=== PATIENT | female | born 1990 | race Caucasian/White ===

== ENCOUNTER 2020-01-03 16:05 | Inpatient (IN) | payer BC, OTHER ==
[2020-01-03] MEDS: Lactated Ringer's 1,000 ML IV SCH ×2 (16:15→18:37)
[2020-01-03 16:24] VITALS: BMI 44.4
[2020-01-03] MEDS ORDERED: Bicitra 30 ML UDCUP ONE (18:02)
[2020-01-03] MEDS ORDERED: Ondansetron PF 4 MG/2 ML Vial IVP PRN ×3 (18:07→22:19)
[2020-01-03] MEDS ORDERED: hydrALAZINE 20 MG/ML VIAL SLOW IVP PRN ×2 (18:07→22:19)
[2020-01-03] MEDS ORDERED: Promethazine HCl 25 MG/ML VIAL IM PRN ×3 (18:07→22:19)
--- NOTE | 2020-01-03 18:10 | PDOC.LDHP ---
Labor and Delivery H&P HPI: 29 y/o at 39 and 0/7 weeks, presents in labor. She declines TOLAC. Due date: 01/10/20 Grav: 2 Para: 1 Abnormal US findings: No Current medications: pre- vitamins Previous surgical history: low tranverse CS Allergies/Adverse Reactions: Allergies Allergy/AdvReac Type Severity Reaction Status Date / Time No Known Allergies Allergy Unverified 01/03/20 17:28 Social history: none - Physical Exam Vital signs reviewed and normal: yes General: NAD, resting, breathing through contractions Heart: RRR Lungs: CTAB Abdomen: gravid Extremeties: no edema FHT: category 1 - Assessment L&D Assessment: term patient in labor - Plan Plan: admit to L&D, to OR for section
[2020-01-03] MEDS ORDERED: CEFAZOLIN 2 GM in Premix Bag 1 BAG IVPB SCH (18:15)
[2020-01-03] MEDS ORDERED: Bicitra 30 ML UDCUP PO SCH (18:15)
[2020-01-03 18:22] LABS: Hemoglobin 12.3 g/dL (12.0-16.0); Mean Corpuscular HGB CONC 32.9 g/dL (32.0-36.0); Mean Corpuscular Hemoglobin 28.5 pg (27.0-31.0); Mean Corpuscular Volume 86.6 fL (78.0-98.0); Mean Platelet Volume 8.7 fL (7.4-10.4); Platelet Count 201 thou/uL (130-400); RBC Distribution Width 14.4 % (11.5-14.5); Red Blood Cell (RBC) Count 4.32 mill/uL (4.20-5.40); White Blood Cell (WBC) Count 9.6 thou/uL (4.8-10.8)
[2020-01-03 19:01] LABS: Syphilis Antibody Nonreactive (Nonreactive); Syphilis Antibody Index 0.04 S/CO (<1.00 Non-Reactive)
[2020-01-03] MEDS ORDERED: EPHEDRINE 25 MG/5 ML SYRINGE ONE (19:02)
[2020-01-03] MEDS ORDERED: Ondansetron PF 4 MG/2 ML Vial ONE (19:02)
[2020-01-03] MEDS ORDERED: Oxytocin 10 UNITS/ML VIAL ONE ×2 (19:02→19:59)
[2020-01-03] MEDS ORDERED: PHENYLEPHRINE-NS 100 MCG/ML 10 ML SYRINGE ONE (19:02)
[2020-01-03] MEDS ORDERED: Ketorolac Tromethamine 30 MG/ML VIAL ONE (19:02)
[2020-01-03] MEDS ORDERED: Lidocaine 1% PF 5 ML VIAL ONE (19:17)
[2020-01-03 19:51] LABS: HBSAg Index 0.16 S/CO (0-0.99); Hep B Surf Ag Non-Reactive S/CO (NonReactive)
[2020-01-03] MEDS ORDERED: Meperidine HCl/PF 25 MG/ML VIAL ONE (19:56)
[2020-01-03] MEDS ORDERED: Promethazine HCl 25 MG SUPP PR PRN (20:19)
[2020-01-03] MEDS ORDERED: L&D-Morphine 4 MG/ML VIAL SLOW IVP PRN (20:19)
[2020-01-03] MEDS ORDERED: Naloxone HCl 0.4 mg/ml Vial IV PRN (20:19)
[2020-01-03] MEDS ORDERED: Naloxone HCl 0.4 mg/ml Vial IVP PRN ×2 (20:19)
[2020-01-03] MEDS ORDERED: Ketorolac Tromethamine 30 MG/ML VIAL IVP PRN (20:19)
[2020-01-03] MEDS ORDERED: Meperidine HCl/PF 25 MG/ML VIAL SLOW IVP PRN (20:19)
[2020-01-03] MEDS ORDERED: Ondansetron HCl/PF 4 MG/2 ML Vial IVP PRN (20:19)
[2020-01-03] MEDS ORDERED: HYDROmorphone 2 MG/ML VIAL SLOW IVP PRN (20:19)
[2020-01-03] MEDS: Ketorolac Tromethamine 30 MG/ML VIAL IVP SCH (20:22)
[2020-01-03] MEDS ORDERED: Communication Order-Pharmacy FS SCH (20:30)
[2020-01-03] MEDS ORDERED: Misoprostol 200 MCG TAB PR PRN (22:19)
[2020-01-03] MEDS ORDERED: Lanolin Ointment 7 GM TUBE TOP PRN (22:19)
[2020-01-03] MEDS ORDERED: Bisacodyl 10 MG SUPP PR PRN (22:19)
[2020-01-03] MEDS ORDERED: Docusate Calcium (SURFAK) 240 MG CAP PO SCH (22:30)
[2020-01-03] MEDS ORDERED: Zolpidem Tartrate 5 MG TAB PO PRN (22:35)
[2020-01-04] MEDS: diphenhydrAMINE 50 MG/ML VIAL IVP PRN ×2 (00:50→05:55)
[2020-01-04] MEDS: Lactated Ringer's 1,000 ML IV SCH (00:50)
[2020-01-04] MEDS ORDERED: Enoxaparin Sodium 40 MG/0.4 ML SYRINGE SC SCH (05:30)
[2020-01-04 06:25] LABS: Mean Corpuscular HGB CONC 31.5 g/dL (32.0-36.0); Mean Corpuscular Hemoglobin 27.8 pg (27.0-31.0); Mean Corpuscular Volume 88.2 fL (78.0-98.0); Mean Platelet Volume 8.5 fL (7.4-10.4); Platelet Count 160 thou/uL (130-400); RBC Distribution Width 14.5 % (11.5-14.5); Red Blood Cell (RBC) Count 3.97 mill/uL (4.20-5.40); White Blood Cell (WBC) Count 8.6 thou/uL (4.8-10.8)
[2020-01-04] MEDS: Prenatal Vitamin 1 TAB PO SCH (08:26)
[2020-01-04] MEDS: Docusate Calcium (SURFAK) 240 MG CAP PO SCH ×2 (08:26→22:20)
[2020-01-04] MEDS ORDERED: Zolpidem Tartrate 5 MG TAB PO PRN (08:30)
[2020-01-04] MEDS ORDERED: HYDROcodone/Acetaminophen 5/325 mg Tablet PO PRN (08:30)
[2020-01-04] MEDS ORDERED: Varicella virus, LIVE 0.5 ML VIAL SC ONE (09:00)
[2020-01-04] MEDS ORDERED: Adacel (T-DAP) 0.5 ML SYRINGE IM ONE (09:00)
[2020-01-04] MEDS ORDERED: Measles/Mumps/Rubella 10 MCG/0.5 ML VIAL SC ONE (09:00)
[2020-01-04] MEDS: HYDROcodone/Acetaminophen 5/325 mg Tablet PO PRN ×3 (09:34→22:20)
[2020-01-04] MEDS: Ketorolac Tromethamine 30 MG/ML VIAL IVP SCH (18:03)
[2020-01-04] MEDS: Ibuprofen 800 MG TAB PO SCH (22:20)
[2020-01-04] MEDS: Simethicone Chewable 80 MG TAB PO PRN (22:20)
[2020-01-05] MEDS ORDERED: Simethicone Chewable 80 MG TAB ONE (05:30)
[2020-01-05] MEDS ORDERED: Ibuprofen 800 MG TAB ONE (05:30)
[2020-01-05] MEDS ORDERED: HYDROcodone/Acetaminophen 5/325 mg Tablet ONE (05:30)
[2020-01-05] MEDS ORDERED: Ibuprofen 800 MG TAB PO SCH (06:00)
[2020-01-05] MEDS ORDERED: Docusate Calcium (SURFAK) 240 MG CAP ONE (09:00)
[2020-01-05] MEDS ORDERED: Prenatal Vitamin 1 TAB ONE (09:00)
[2020-01-05] MEDS: Ibuprofen 800 MG TAB PO SCH ×2 (10:01→14:23)
[2020-01-05] MEDS: Prenatal Vitamin 1 TAB PO SCH (10:01)
[2020-01-05] MEDS: Docusate Calcium (SURFAK) 240 MG CAP PO SCH (10:01)
[2020-01-05] MEDS: HYDROcodone/Acetaminophen 5/325 mg Tablet PO PRN ×2 (10:16→14:23)
[2020-01-05 11:48] VITALS: BP 112/65; TEMP 98.1
--- NOTE | 2020-01-05 13:58 | PDOC.PP ---
Post Progress Note Post Day #: 2 PO intake tolerated: yes Flatus: yes Ambulation: yes Vital Signs (12 hours) Temp Pulse Resp BP Pulse Ox 01/05/20 11:47 98.1 F 85 18 112/65 01/05/20 08:00 97.6 F 80 18 120/58 L 98 Weight Weight 267 lb - Physical Examination General: NAD Cardiovascular: no m/r/g, RRR Respiratory: clear to auscultation bilaterally Abdominal: + bowel sounds, lochia Extremities: negative homans (B) Skin: CS incision dry & intact, no rash Neurological: no gross focal deficits Psychiatric: A&Ox3, normal affect Result Diagrams: 01/04/20 06:13 Additional Labs: Post Labs Hep Bs Antigen Non-Reactive S/CO (NonReactive) 01/03/20 17:17 Blood Type O POSITIVE 01/03/20 18:30
--- NOTE | 2020-01-05 13:59 | PDOC.PP ---
Post Progress Note Post Day #: 1 PO intake tolerated: yes Flatus: yes Ambulation: yes Vital Signs (12 hours) Temp Pulse Resp BP Pulse Ox 01/05/20 11:47 98.1 F 85 18 112/65 01/05/20 08:00 97.6 F 80 18 120/58 L 98 Weight Weight 267 lb - Physical Examination General: NAD Cardiovascular: no m/r/g, RRR Respiratory: clear to auscultation bilaterally, non-labored breathing Abdominal: + bowel sounds, lochia, no distention Extremities: negative homans (B) Skin: CS incision dry & intact, no rash Neurological: no gross focal deficits Psychiatric: A&Ox3, normal affect Result Diagrams: 01/04/20 06:13 Additional Labs: Post Labs Hep Bs Antigen Non-Reactive S/CO (NonReactive) 01/03/20 17:17 Blood Type O POSITIVE 01/03/20 18:30
[2020-01-05] MEDS: Simethicone Chewable 80 MG TAB PO PRN (14:23)
== END 2020-01-05 15:55 | disposition home or self-care (01) | DRG 788 ==
LOC: L&D/OP 16:05 → L&D 17:03 → 3SW 22:38
PROVIDERS: ADMIT Obstetrics & Gynecology; ATTEND Obstetrics & Gynecology
PROC: 10D00Z1 Extraction of Products of Conception, Low, Open Approach (ICD-10-PCS; principal; 2020-01-03)
DX: O34.219 Maternal care for unspecified type scar from previous cesarean delivery (principal); Z3A.39 39 weeks gestation of pregnancy; Z37.0 Single live birth; O77.0 Labor and delivery complicated by meconium in amniotic fluid
CPT/HCPCS: 36415; 51702; 85027; 86780; 86850; 86900; 86901; 87340; 87635; 99285; J0690; J1200; J1650; J1885; J2175; J2270; J2405; J2590; U0003

== ENCOUNTER 2020-01-11 10:46 | Inpatient (IN) | payer BC, OTHER ==
[2020-01-11] MEDS ORDERED: Iopamidol 370 76% 100 ML VIAL ONE (10:54)
--- NOTE | 2020-01-11 11:40 | RAD ---
RADIOGRAPH CHEST 1 VIEW: Date: 01/11/2020 Time: 1131 HOURS HISTORY: 29-year-old female with dyspnea and cough. COMPARISON: None available. FINDINGS: There is free intraperitoneal air abutting the undersurfaces of bilateral hemidiaphragms, and across midline. There is faint, hazy small patchy infiltrate-like density at the medial base of the right rose ng. The rest of the visualized lung noble are clear. Cardiomediastinal silhouette is normal. Lateral costophrenic angles are sharp. No pneumothorax or pulmonary edema. IMPRESSION: 1. Apparent mild infiltrate at base of right lung. Recommend follow-up. 2. Pneumoperitoneum. This could either be from recent intraperitoneal surgery or perforated viscus. Recommend clinical correlation. FLORA [] POS: JIN
[2020-01-11 12:04] LABS: Bilirubin Negative (Negative); Blood, Urine 3+ (Negative); Clarity Clear (Clear); Glucose, Urine (Dipstick) Normal (Negative); Ketone, Urine Negative (Negative); Leukocyte 250 Leu/uL (Negative); Nitrite Negative (Negative); Protein, Urine (Dipstick) Negative (Neg-Trace); RBC/HPF 21-50 HPF (0-3); Specific Gravity, Urine 1.008 (1.002-1.036); Urobilinogen Normal mg/dL (Less than 2); pH, Urine 6.5 (5.0-9.0)
[2020-01-11 12:12] LABS: #Lymphocytes 1.2 thou/uL (1.20-3.40); #Monocytes 0.3 thou/uL (0.11-0.59); #Neutrophils 8.3 thou/uL (1.40-6.50); %Basophils 0.2 % (0.0-1.0); %Eosinophils 0.3 % (0.0-10.0); %Lymphocytes 12.4 % (21.0-51.0); %Monocytes 3.5 % (0.0-10.0); %Neutrophils 83.7 % (42.0-75.0); Mean Corpuscular HGB CONC 32.2 g/dL (32.0-36.0); Mean Corpuscular Hemoglobin 28.6 pg (27.0-31.0); Mean Corpuscular Volume 88.8 fL (78.0-98.0); Mean Platelet Volume 7.6 fL (7.4-10.4); Platelet Count 299 thou/uL (130-400); RBC Distribution Width 14.4 % (11.5-14.5); Red Blood Cell (RBC) Count 4.19 mill/uL (4.20-5.40); White Blood Cell (WBC) Count 9.9 thou/uL (4.8-10.8)
[2020-01-11 12:14] LABS: Bacteria/HPF None Seen HPF (None Seen)
[2020-01-11 12:32] LABS: ALT (SGPT) 102 U/L (8-55); AST (SGOT) 60 U/L (5-34); Albumin 3.5 g/dL (3.5-5.0); Alkaline Phosphatase 245 U/L (40-110); Anion Gap 16 mmol/L (10-20); BUN (Urea Nitrogen) 12 mg/dL (7.0-18.7); Bilirubin, Total 0.2 mg/dL (0.2-1.2); Calc. Creatinine Clearance 0 mL/min (70-130); Carbon Dioxide 23 mmol/L (22-29); Chloride 105 mmol/L (98-107); Estimated GFR-MDRD 76; Glucose 96 mg/dL (70-105); Potassium 4.3 mmol/L (3.5-5.1); Protein, Total 6.5 g/dL (6.0-8.3); Sodium 140 mmol/L (136-145)
--- NOTE | 2020-01-11 13:00 | CT ---
CTA Angio Chest W WO Con 01/11/2020 12:54 PM Indication: History of on 01/03/2020 with shortness breath and cough Technique: Multiple CTA images were obtained of the thorax with IV contrast. 3-D rendering: MIP dinora nstructed images were created and reviewed. Comparison: No relevant prior studies available. Findings: Pulmonary arteries: No central or segmental pulmonary embolus is evident. Heart and Aorta: Normal appearing. Mediastinum:Normal appearing. No enlarged lymph nodes. Lungs:There are reticulonodular opacities within the right middle lobe and right lower lobe with more prominent patchy areas of groundglass airspace opacity suspicious for bronchopneumonia. Left lung is clear. Pleural space: Clear. Upper Abdomen: There is scattered free air within the upper abdomen which may be postprocedural in n ature. Osseous Structures: No acute osseous abnormality. Soft tissues:No abnormality. Other findings:None. Impression: 1. No central or segmental pulmonary embolus. 2.Patchy reticular nodular and ground glass airspace opacities right middle lobe and right lower lobe suspicious for a bronchopneumonia. 3. Scattered areas of free air in the upper abdomen may be postprocedural in nature related to patien t's recent ; however, extending slightly more pronounced than expected for patient 8 days out from . 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
[2020-01-11] MEDS ORDERED: Calcium Gluc 4.6 MEQ/10 ML (100 MG/ML) SLOW IVP PRN (13:32)
--- NOTE | 2020-01-11 13:32 | PDOC.BPN ---
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 This patient underwent a CS with Dr Shoemaker 8 days ago and is here for SOB and LE edema. Chest imaging shows RLL pneumonia but no evidence clots. She was started on Rocephin and Zmax for the pneumonia in the ER. Her initial BP was 160/99 but repeat was normal (no antihypertensive meds given in ED PHYSICAL: NAD Bilateral LE edema Labs: AST 60 ALT 102 Plt 229 Cr 0.87 Assessment and plan: Possible PP Preeclampsia and RLL pneumonia, NOS 1. To L&D 2. Mag due to LFT abnormal 3. COVID screen in ED 4. Lasix 20mg IV x1 ordered to be given in ED 5. I have tiger texted Dr Shoemaker 6. I will eval when arrives to L&D
[2020-01-11] MEDS ORDERED: Magnesium Sulfate 20 GM/WATER 500 ML BAG IVPB SCH (13:45)
[2020-01-11] MEDS ORDERED: Magnesium Sulfate 20 gm/500 ml 20 GM/500 ML BAG IVPB SCH (13:45)
[2020-01-11] MEDS ORDERED: Azithromycin 500 MG VIAL ONE (13:52)
[2020-01-11] MEDS ORDERED: cefTRIAXone\\ROCEPHIN 1 GM VIAL ONE (13:52)
[2020-01-11 14:59] LABS: SARS-CoV-2 NAA Rapid Test Not Detected (NotDetected)
[2020-01-11] MEDS ORDERED: Furosemide 20 MG/2 ML VIAL ONE (15:19)
--- NOTE | 2020-01-11 17:15 | PDOC.BPN ---
- Brief Progress Note Encounter Date: 01/11/20 Encounter Time: 17:00 Patient has arrived in L&D. Dr Shoemaker is aware and has assumd care. BPs so far in L&D are normal. I am ok with not starting mag for now and observing BPs in L&D. I have communicated this to Sabi Mullen (our RN). OK to hold Mag if Dr Shoemaker agrees as he is now prescribing/primary MD
[2020-01-11 17:47] VITALS: BP 128/70; TEMP 98.3; BMI 41.5
[2020-01-11] MEDS: cefTRIAXone\\ROCEPHIN 1 GM in Sodium Chloride 0.9% 100 ML IVPB SCH (17:49)
--- NOTE | 2020-01-11 18:41 | PDOC.BPN ---
- Brief Progress Note Encounter Date: 01/11/20 Encounter Time: 18:10 OBGYN prescription clerk lenses: Patient sen at bedside and HX confirmed. States no real fever at home. Did have cough mainly this morning but baby w/o sxs. She denies any possible infectious exposure. I have reviewed with her our plan for continued emperic ABX for RLL infiltrate and ok to hold off mag for now as BPs are ok. She has reciebed lasix in ED and feels better with decreased pedal edema
[2020-01-11] MEDS ORDERED: Bicitra 30 ML UDCUP PO SCH (18:45)
[2020-01-12] MEDS ORDERED: Azithromycin 200 MG/5 ML Oral Suspension PO SCH (09:00)
[2020-01-12] MEDS: cefTRIAXone\\ROCEPHIN 1 GM in Sodium Chloride 0.9% 100 ML IVPB SCH (12:37)
== END 2020-01-12 14:13 | disposition home or self-care (01) | DRG 776 ==
LOC: ERS 10:46 → L&D 17:10
PROVIDERS: ADMIT Obstetrics & Gynecology; ATTEND Obstetrics & Gynecology
DX: O99.53 Diseases of the respiratory system complicating the puerperium (principal); J18.9 Pneumonia, unspecified organism; O14.05 Mild to moderate pre-eclampsia, complicating the puerperium; Z20.828 Contact with and (suspected) exposure to other viral communicable diseases; Z79.899 Other long term (current) drug therapy
CPT/HCPCS: 36415; 71045; 71275; 80053; 81003; 81015; 83880; 84484; 85025; 87040; 96365; 96366; 96367; 96375; J0456; J0696; J1940; J3490; Q9967; U0002